=== PATIENT | male | born 1990 | race American Indian/Alaskan Native ===

== ENCOUNTER 2021-04-25 19:50 | Emergency (ER) | payer SELFPAY ==
[2021-04-25 22:36] VITALS: BP 120/71
--- NOTE | 2021-04-25 22:46 | Emergency Department Report ---
ED ENT HPI - General Chief complaint: Dental/Oral Stated complaint: Dental pain Time Seen by Provider: 04/25/21 21:36 Source: patient Mode of arrival: Ambulatory Limitations: No Limitations - History of Present Illness Initial comments: 31-year-old male with chronic recurrent pain presents emerge department complaining of pain to the lower molars off and on due to cavities and impaction is due to follow-up with a dentist in the next next couple days for correction but has been expressing some swelling and pain to the region and seeks analgesic pain control and more antibiotics reports no fever, chills, sweats no odynophagia or dysphagia no chest pain palpitation MD complaint: tooth pain -: Gradual Location: tooth # 1 - Tenderness to this area Severity: mild, moderate Quality: dull Consistency: constant Improves with: none Worsens with: none Context- Dental: history of dental caries, poor dental care Associated Symptoms: toothache. denies: sore throat, tinnitus, discharge from ear - Related Data Previous Rx's Medication Instructions Recorded Last Taken Type traMADoL [Ultram] 50 mg PO Q6HR PRN #12 tablet 03/29/21 Unknown Rx Chlorhexidine Mouthwash [Peridex] 15 ml MM BID #1 bottle 04/25/21 Unknown Rx Clindamycin [Clindamycin CAP] 300 mg PO Q8H 7 Days #21 cap 04/25/21 Unknown Rx Ketorolac [Toradol] 10 mg PO Q6H PRN #20 tablet 04/25/21 Unknown Rx Allergies Allergy/AdvReac Type Severity Reaction Status Date / Time Penicillins AdvReac Hives Verified 03/29/21 00:31 ED Dental HPI - General Chief complaint: Dental/Oral Stated complaint: Dental pain Time Seen by Provider: 04/25/21 21:36 Source: patient Mode of arrival: Ambulatory Limitations: No Limitations - Related Data Previous Rx's Medication Instructions Recorded Last Taken Type traMADoL [Ultram] 50 mg PO Q6HR PRN #12 tablet 03/29/21 Unknown Rx Chlorhexidine Mouthwash [Peridex] 15 ml MM BID #1 bottle 11/16/21 Unknown Rx Clindamycin [Clindamycin CAP] 300 mg PO Q8H 7 Days #21 cap 04/25/21 Unknown Rx Ketorolac [Toradol] 10 mg PO Q6H PRN #20 tablet 04/25/21 Unknown Rx Allergies Allergy/AdvReac Type Severity Reaction Status Date / Time Penicillins AdvReac Hives Verified 03/29/21 00:31 ED Review of Systems ROS: Stated complaint: Dental pain Other details as noted in HPI Comment: All other systems reviewed and negative ED Past Medical Hx - Past Medical History Previous Medical History?: No - Surgical History Past Surgical History?: No - Social History Smoking Status: Current Every Day Smoker Substance Use Type: None - Medications Home Medications: Home Medications Medication Instructions Recorded Confirmed Last Taken Type traMADoL [Ultram] 50 mg PO Q6HR PRN #12 tablet 03/29/21 Unknown Rx Chlorhexidine Mouthwash [Peridex] 15 ml MM BID #1 bottle 04/25/21 Unknown Rx Clindamycin [Clindamycin CAP] 300 mg PO Q8H 7 Days #21 cap 04/25/21 Unknown Rx Ketorolac [Toradol] 10 mg PO Q6H PRN #20 tablet 04/25/21 Unknown Rx ED Physical Exam - General Limitations: No Limitations General appearance: alert, in no apparent distress - Head Head exam: Present: atraumatic, normocephalic - Eye Eye exam: Present: normal appearance, PERRL, EOMI Pupils: Present: normal accommodation - ENT ENT exam: Present: mucous membranes moist, other - Expanded ENT Exam Expanded Teeth exam: Present: dental caries, dental tenderness # (Tooth #33 and 31), gingival enlargement - Neck Neck exam: Present: normal inspection, full ROM. Absent: tenderness, meningismus, lymphadenopathy - Respiratory Respiratory exam: Present: normal lung sounds bilaterally. Absent: respiratory distress, decreased breath sounds, prolonged expiratory - Cardiovascular Cardiovascular Exam: Present: regular rate, normal rhythm. Absent: systolic murmur, diastolic murmur, rubs, gallop - GI/Abdominal GI/Abdominal exam: Present: soft, normal bowel sounds - Rectal Rectal exam: Present: deferred - Extremities Exam Extremities exam: Present: normal inspection, full ROM, normal capillary refill - Back Exam Back exam: Present: normal inspection. Absent: CVA tenderness (R), CVA tenderness (L) - Neurological Exam Neurological exam: Present: alert, oriented X3, CN II-XII intact, normal gait - Psychiatric Psychiatric exam: Present: normal affect, normal mood. Absent: anxious, flat affect, manic, suicidal ideation - Skin Skin exam: Present: warm, dry, intact, normal color. Absent: rash ED Course Vital Signs 04/25/21 04/25/21 20:50 22:35 Temperature 98.1 F Pulse Rate 73 53 L Respiratory 18 13 Rate Blood Pressure 127/73 120/71 [Right] O2 Sat by Pulse 100 100 Oximetry Critical care attestation.: If time is entered above; I have spent that time in minutes in the direct care of this critically ill patient, excluding procedure time. ED Disposition Clinical Impression: Dentalgia, Dental caries Disposition: 01 HOME / SELF CARE / HOMELESS Is pt being admited?: No Does the pt Need Aspirin: No Condition: Stable Instructions: Preventive Dental Care, Adult, Acute Pain, Adult Prescriptions: Clindamycin [Clindamycin CAP] 300 mg PO Q8H 7 Days #21 cap Chlorhexidine Mouthwash [Peridex] 15 ml MM BID #1 bottle Ketorolac [Toradol] 10 mg PO Q6H PRN #20 tablet PRN Reason: Pain Referrals: [facility] [Outside] - 3-5 Days
== END 2021-04-25 22:31 | disposition home or self-care (01) ==
LOC: ED 19:50
DX: K08.89 Other specified disorders of teeth and supporting structures (principal); K02.9 Dental caries, unspecified; Z88.0 Allergy status to penicillin
CPT/HCPCS: 99282